=== PATIENT | male | born 1990 | race African-American/Black ===

== ENCOUNTER 2018-04-27 14:26 | Emergency (ER) | payer SELFPAY ==
[~2018-04-27] VITALS: Ht 172.7 cm; Wt 79.5 kg
[2018-04-27 14:28] VITALS: BP 128/75
[2018-04-27] MEDS ORDERED: DEXAMETHASONE 4 MG TABLET ONE (14:54)
[2018-04-27] MEDS ORDERED: DEXAMETHASONE 4 MG TABLET PO ONE (15:00)
== END 2018-04-27 15:16 | disposition home or self-care (01) ==
LOC: ED 15:10
DX: K02.9 Dental caries, unspecified (principal)
CPT/HCPCS: 99283